=== PATIENT | male | born 1950 | race Caucasian/White ===

== ENCOUNTER 2017-07-18 07:32 | Outpatient (CLI) | payer BC | END 2017-07-18 07:33 | disposition home or self-care (01) | LOC: BICRAD 07:32 | PROVIDERS: ATTEND Family Medicine | DX: M25.512 Pain in left shoulder (principal); M19.012 Primary osteoarthritis, left shoulder ==

== ENCOUNTER 2017-11-19 19:43 | Emergency (ER) | payer BC ==
[2017-11-19 20:25] LABS: #Basophils 0.1 thou/uL (0.0-0.2); #Eosinphils 0.2 thou/uL (0.0-0.7); #Lymphocytes 1.6 thou/uL (1.20-3.40); #Monocytes 0.7 thou/uL (0.11-0.59); #Neutrophils 5.4 thou/uL (1.40-6.50); %Basophils 1.4 % (0.0-1.0); %Eosinophils 3.1 % (0.0-10.0); %Lymphocytes 20.2 % (21.0-51.0); %Monocytes 8.3 % (0.0-10.0); %Neutrophils 67.1 % (42.0-75.0); Hemoglobin 15.5 g/dL (14.0-18.0); Mean Corpuscular HGB CONC 34.4 g/dL (32.0-36.0); Mean Corpuscular Hemoglobin 29.6 pg (27.0-31.0); Mean Corpuscular Volume 85.9 fL (78.0-98.0); Platelet Count 252 thou/uL (130-400); RBC Distribution Width 11.9 % (11.5-14.5); Red Blood Cell (RBC) Count 5.25 mill/uL (4.70-6.10)
[2017-11-19 20:46] LABS: ALT (SGPT) 22 U/L (8-55); AST (SGOT) 18 U/L (5-34); Albumin 4.5 g/dL (3.4-4.8); Alkaline Phosphatase 66 U/L (40-150); Anion Gap 16 mmol/L (10-20); BUN (Urea Nitrogen) 26 mg/dL (8.4-25.7); Bilirubin, Total 0.8 mg/dL (0.2-1.2); CK (CPK) 194 U/L (30-200); Calc. Creatinine Clearance 0 mL/min (70-130); Calcium 9.7 mg/dL (7.8-10.44); Carbon Dioxide 21 mmol/L (23-31); Chloride 110 mmol/L (98-107); Estimated GFR-MDRD 47; Globulin 2.8 g/dL (2.4-3.5); Glucose 100 mg/dL (80-115); Potassium 3.8 mmol/L (3.5-5.1); Protein, Total 7.3 g/dL (5.8-8.1); Sodium 143 mmol/L (136-145)
[2017-11-19 20:50] LABS: CKMB 2.3 ng/mL (0-6.6); Troponin I Less than 0.010 ng/mL (< 0.028)
--- NOTE | 2017-11-19 20:55 | RAD ---
PORTABLE CHEST: History: Chest pain. FINDINGS: Heart size and mediastinum are within normal limits. The lungs are clear of infiltrates. No significa nt bony findings. IMPRESSION: No active intrathoracic disease. POS: [facility]
== END 2017-11-19 22:00 | disposition home or self-care (01) ==
LOC: ERS 19:43
DX: R00.2 Palpitations (principal)
CPT/HCPCS: 36415; 71045; 80053; 82550; 82553; 83880; 84484; 85025; 93005

== ENCOUNTER 2017-12-25 09:26 | Observation (INO) | payer BC ==
[2017-12-25 10:11] LABS: #Basophils 0.1 thou/uL (0.0-0.2); #Eosinphils 0.1 thou/uL (0.0-0.7); #Lymphocytes 0.9 thou/uL (1.20-3.40); #Monocytes 0.4 thou/uL (0.11-0.59); #Neutrophils 2.7 thou/uL (1.40-6.50); %Basophils 1.4 % (0.0-1.0); %Eosinophils 3.3 % (0.0-10.0); %Lymphocytes 21.6 % (21.0-51.0); %Neutrophils 64.6 % (42.0-75.0); Hemoglobin 14.2 g/dL (14.0-18.0); Mean Corpuscular HGB CONC 33.7 g/dL (32.0-36.0); Mean Corpuscular Hemoglobin 29.1 pg (27.0-31.0); Mean Corpuscular Volume 86.3 fL (78.0-98.0); Platelet Count 184 thou/uL (130-400); RBC Distribution Width 11.8 % (11.5-14.5); Red Blood Cell (RBC) Count 4.88 mill/uL (4.70-6.10); White Blood Cell (WBC) Count 4.1 thou/uL (4.8-10.8)
[2017-12-25 10:19] LABS: INR-International Normal Ratio 1.1; PTT 28.2 SEC (22.9-36.1); Prothrombin Time 13.8 SEC (12.0-14.7)
[2017-12-25 10:35] LABS: Anion Gap 11 mmol/L (10-20); BUN (Urea Nitrogen) 17 mg/dL (8.4-25.7); Calc. Creatinine Clearance 73 mL/min (70-130); Calcium 8.9 mg/dL (7.8-10.44); Carbon Dioxide 26 mmol/L (23-31); Chloride 108 mmol/L (98-107); Estimated GFR-MDRD 61; Glucose 98 mg/dL (80-115); Potassium 3.9 mmol/L (3.5-5.1); Sodium 141 mmol/L (136-145)
[2017-12-25] MEDS ORDERED: Lidocaine 1% (PF) 30 ML VIAL ONE (13:13)
[2017-12-25] MEDS ORDERED: Isoproterenol 0.2 MG/1 ML AMP ONE ×2 (13:14→14:44)
[2017-12-25] MEDS ORDERED: DOPamine 400 MG/D5W 250 ML 0 ML ONE (13:14)
[2017-12-25] MEDS ORDERED: Heparin 10,000 UNITS/1 ML VIAL ONE (14:12)
[2017-12-25] MEDS ORDERED: Propofol 500 MG/50 ML VIAL ONE (14:17)
[2017-12-25] MEDS ORDERED: Fentanyl 100 MCG/2 ML VIAL ONE (14:20)
[2017-12-25] MEDS ORDERED: Midazolam HCl 2 mg/2 ml Vial ONE (14:20)
[2017-12-25] MEDS ORDERED: PHENYLEPHRINE-NS 100 MCG/ML 10 ML SYRINGE ONE (14:57)
[2017-12-25] MEDS ORDERED: PROPOFOL 200 MG/20 ML VIAL ONE (14:57)
[2017-12-25] MEDS ORDERED: ePHEDrine/0.9% NaCl/PF SYRINGE 50 mg/10 ml ONE (14:57)
[2017-12-25] MEDS ORDERED: Zolpidem Tartrate 5 MG TAB PO PRN (18:10)
[2017-12-25] MEDS ORDERED: Acetaminophen/Codeine 30-300mg Tablet PO PRN ×2 (18:15)
[2017-12-25 18:36] VITALS: BMI 30.3
[2017-12-25] MEDS ORDERED: diphenhydrAMINE 25 MG CAP PO PRN (19:45)
[2017-12-25] MEDS ORDERED: Acetaminophen 500 MG TAB PO SCH (21:00)
[2017-12-26] MEDS ORDERED: Prevnar 13-Val Conj/PF 0.5 ML SYRINGE IM ONE (09:00)
[2017-12-26] MEDS ORDERED: Digoxin 0.125 MG TAB PO SCH (09:00)
[2017-12-26 11:47] VITALS: BP 140/77; TEMP 97.6
--- NOTE | 2017-12-26 12:49 | OP ---
DATE OF PROCEDURE: 12/25/2017 This is an electrophysiology study and radiofrequency ablation report. REFERRING PHYSICIAN: Humberto Bolden MD PRIMARY CARE PHYSICIAN: Joi Daugherty MD REASON FOR PROCEDURE: Mr. Barker is a 67-year-old man with prior history of palpitations, normal LVEF, and no ischemia on the stress test who had event monitor documented rapid 1:1 tachycardia ranging 180-230 beats per minute. Here for EPS and ablation procedure. DESCRIPTION OF PROCEDURE: The patient received deep sedation by Anesthesia specialist. After adequate level of sedation achieved, the left and right femoral venous area was prepped, draped, and anesthetized with subcutaneous lidocaine. The left femoral vein was accessed under ultrasound guidance, two 8- [place] short sheath was introduced. The right femoral vein was also accessed with ultrasound guidance and a single 8-[place] short sheath was introduced. Through the left side, a decapolar and octapolar catheter was advanced to the right ventricle, His bundle, right atrium, and CS positions. Pacing, mapping, and recording were performed in each location. The following findings were found. Baseline cycle length 1162 milliseconds, sinus rhythm, MD 164 milliseconds, QRS 71 milliseconds, QT 460 milliseconds, AH 86 milliseconds, HV 56 milliseconds. VA Wenckebach cycle length was 300 milliseconds and central concentric retrograde VA conduction was noted. The antegrade Wenckebach cycle length was 300 milliseconds. AV node ERP was measured to be at 600/220 milliseconds with dual AV alethea physiology was present. With overdrive atrial pacing transient RBBB pattern aberration was seen with normal HV. With burst atrial pacing, we were able to induce 1:1 narrow complex tachycardia with a cycle length of 375 milliseconds. VA timing on this was 200 milliseconds and central retrograde VA conduction was seen. Transiently Infrahisian block was also seen during tachycardia, resulting in 2:1 AV conduction, but it did not perturb the tachycardia, On isuprel though, we were able to induce faster tachycardia, which was a cycle length of 314 induced very rapid tachycardia at 250 milliseconds with VA timing of 90 milliseconds. Both tachycardia was assessed with ventricular overdrive pacing and promptly terminated with ventricular overdrive pacing. Re-synched R2 testing was also performed and there seems to have been no AA advancement with His refractory PVCs. Following that, a standard 4-mm ablation catheter was advanced to the right atrium. 3D map of the right atrium was performed and during tachycardia, mapping of retrograde AV was performed which seems to have lead the earliest atrial activation to the CS os/slow pathway area. Following that, slow pathway modification was performed with a total of 5 ablations at a total time of 3 minutes 11 seconds at 40 kilgore 60-degree settings. Maximum temperature was 56 degrees, average was 46 degrees. Following that burst atrial pacing, on and off isuprel was unable to re-induce a tachycardia. Extrastimuli testing did not demonstrate slow pathway and no echo beats were either seen. CONCLUSION: 1. 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 2. Dual AV alethea physiology at baseline. No evidence of accessory pathway. Rate related RBBB. 3. Slow pathway modification eliminating inducibility of both tachycardia on and off isuprel. 4. Otherwise, normal AV alethea and sinus alethea function. PLAN: 1. Routine postop care. [facility]
--- NOTE | 2017-12-26 13:52 | DIS ---
DATE OF ADMISSION: 12/25/2017 DATE OF DISCHARGE: 12/26/2017 REASON FOR 23-HOUR OBSERVATION: AVNRT, radiofrequency ablation. CONDITION AT DISCHARGE: Stable. DIAGNOSES: 1. Supraventricular tachycardia. 2. 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 PROCEDURES PERFORMED: Include an EP study, mapping and slow pathway modification for atypical and ty pical AV alethea reentrant tachycardia. HISTORY OF PRESENT ILLNESS: Mr. Barker is a 67-year-old gentleman with a history of palpitations, nor mal LVEF and no ischemia by prior stress test. He had an event monitor the documented a rapid 1:1 ta chycardia with ventricular rates in the 180-230 beat per minute range. He was admitted to [facility] for an elective outpatient EP study and ablation was performed on the . During his EP study he was successfully induced for atypical AVNRT as well as typical AVNRT. Dual AV alethea physiology was seen at baseline. There is no evidence of accessory pathway. Slow pathway modification was performe d eliminating inducibility of tachycardia on and off isuprel. Otherwise, normal AV alethea and sinus n odal function was demonstrated. There was also a right bundle aberration noted with burst atrial pac ing, which was transient. He has done well since his ablation. There has been no further tachycardi c episodes overnight. He is feeling well. He is tolerating p.o. intake. He is ambulating without d ifficulty around the [place]. His groin sites are stable without tenderness, bruising, hematoma or blee ding complications overnight. REVIEW OF SYSTEMS: Negative for heart racing, palpitation, chest pain or pressure, syncope, near syn cope, stroke or stroke-like symptoms or tenderness at groin site. OBJECTIVE: VITAL SIGNS: Temperature 97.6, pulse 60, blood pressure 115/65, oxygen 98% on room air, respirations are 20. GENERAL: This patient is alert, oriented, well groomed, well nourished. Speech is clear. Affect is appropriate. NEUROLOGIC: Nonfocal. LUNGS: Clear to auscultation bilaterally. HEART: Heart rate is regularly irregular without significant murmur, rub or gallop. Hepatojugular r eflex is negative. There is no jugular venous distention. EXTREMITIES: Warm and dry to touch without clubbing, cyanosis or edema. DISCHARGE MEDICATIONS: 1. Discontinue digoxin. 2. Metoprolol succinate taper at 12.5 mg daily x5 days, then every other day x3 days, then stop comp letely. Otherwise, resume home medications as previously taken. DISCHARGE INSTRUCTIONS: No lifting more than 15 pounds x1 week, no soaking baths x1 week. May resum e activity gradually and as tolerated after groin sites have healed in 7 days. We will follow up [facility] in [place] in 4-6 weeks, and contact us with any further questions or concerns post-ablation.
--- NOTE | 2017-12-31 21:10 | EKG ---
Test Reason : PREOP Blood Pressure : / mmHG Vent. Rate : 058 BPM Atrial Rate : 058 BPM P-R Int : 162 ms QRS Dur : 090 ms QT Int : 408 ms P-R-T Axes : 057 -46 057 degrees QTc Int : 400 ms Sinus bradycardia Left anterior fascicular block Abnormal ECG When compared with ECG of 19-NOV-2017 20:24, Nonspecific T wave abnormality now evident in Lateral leads Confirmed by ASHLEY SAAB (2) on 12/31/2017 9:09:50 PM Referred By: MARIELENA Confirmed By:ASHLEY SAAB
--- NOTE | 2017-12-31 21:41 | EKG ---
Test Reason : Blood Pressure : / mmHG Vent. Rate : 063 BPM Atrial Rate : 063 BPM P-R Int : 174 ms QRS Dur : 088 ms QT Int : 386 ms P-R-T Axes : 061 -41 040 degrees QTc Int : 395 ms Normal sinus rhythm Left axis deviation Abnormal ECG When compared with ECG of 25-DEC-2017 10:01, (Unconfirmed) No significant change was found Confirmed by ASHLEY SAAB (2) on 12/31/2017 9:41:04 PM Referred By: MARIELENA Confirmed By:ASHLEY SAAB
--- NOTE | 2017-12-31 21:47 | EKG ---
Test Reason : Blood Pressure : / mmHG Vent. Rate : 059 BPM Atrial Rate : 059 BPM P-R Int : 164 ms QRS Dur : 090 ms QT Int : 396 ms P-R-T Axes : 050 -36 060 degrees QTc Int : 392 ms Sinus bradycardia Left axis deviation Nonspecific T wave abnormality Abnormal ECG When compared with ECG of 25-DEC-2017 17:23, (Unconfirmed) Nonspecific T wave abnormality, worse in Lateral leads Confirmed by ASHLEY SAAB (2) on 12/31/2017 9:46:44 PM Referred By: MARIELENA Confirmed By:ASHLEY SAAB
== END 2017-12-26 13:39 | disposition home or self-care (01) ==
LOC: CCL 09:26 → 2SW 18:05
PROVIDERS: ADMIT Internal Medicine Cardiovascular Disease; ATTEND Internal Medicine Cardiovascular Disease
PROC: 4A023FZ Measurement of Cardiac Rhythm, Percutaneous Approach (ICD-10-PCS; principal; 2017-12-26)
PROC: 4A0234Z Measurement of Cardiac Electrical Activity, Percutaneous Approach (ICD-10-PCS; 2017-12-26)
PROC: 02583ZZ Destruction of Conduction Mechanism, Percutaneous Approach (ICD-10-PCS; 2017-12-26)
PROC: 02K83ZZ Map Conduction Mechanism, Percutaneous Approach (ICD-10-PCS; 2017-12-26)
DX: I47.1 Supraventricular tachycardia (principal); M10.9 Gout, unspecified; G43.909 Migraine, unspecified, not intractable, without status migrainosus; G25.0 Essential tremor; E78.5 Hyperlipidemia, unspecified; E66.9 Obesity, unspecified; Z68.30 Body mass index [BMI] 30.0-30.9, adult; Z79.899 Other long term (current) drug therapy
CPT/HCPCS: 36415; 76942; 80048; 85025; 85610; 85730; 90471; 90670; 93005; 93010; 93613; 93620; 93623; 93653; C1730; C1769; G0009; G0378; J1265; J1644; J2001; J2250; J2704; J3010

== ENCOUNTER 2020-04-10 09:37 | Outpatient (CLI) | payer MEDICARE | END 2020-04-10 09:38 | disposition home or self-care (01) | LOC: BICRAD 09:37 | PROVIDERS: ATTEND Family Medicine | DX: M54.6 Pain in thoracic spine (principal); M47.814 Spondylosis without myelopathy or radiculopathy, thoracic region | CPT/HCPCS: 72072 ==

== ENCOUNTER 2021-06-29 09:31 | Outpatient (CLI) | payer MEDICARE ==
[2021-06-29 10:27] LABS: Hemoglobin 14.2 g/dL (13.5-17.5); Mean Corpuscular HGB CONC 34.5 g/dL (32.0-36.0); Mean Corpuscular Hemoglobin 29.3 pg (27.0-33.0); Mean Corpuscular Volume 84.9 fl (81.2-95.1); Mean Platelet Volume 10.5 fl (7.4-10.4); Platelet Count 199 10x3/uL (150-450); RBC Distribution Width 13.2 % (11.5-14.5); Red Blood Cell (RBC) Count 4.85 10x6/uL (4.32-5.72)
[2021-06-29 10:36] LABS: Bilirubin Neg (Negative); Blood, Urine Negative (Negative); Clarity Clear (Clear); Glucose, Urine (Dipstick) Normal (Negative); Ketone, Urine Negative (Negative); Leukocyte Negative (Negative); Nitrite Negative (Negative); Protein, Urine (Dipstick) Negative (Neg-Trace); Specific Gravity, Urine 1.015 (1.002-1.036); Urobilinogen Normal mg/dL (Less than 2)
[2021-06-29 10:52] LABS: PTT 25.5 sec (22.0-33.0); Prothrombin Time 10.9 sec (9.5-12.1)
[2021-06-29 10:58] LABS: Anion Gap 13 mmol/L (10-20); BUN (Urea Nitrogen) 19 mg/dL (8.4-25.7); Calc. Creatinine Clearance 0 mL/min (70-130); Calcium 9.2 mg/dL (7.8-10.44); Carbon Dioxide 27 mmol/L (23-31); Chloride 110 mmol/L (98-107); Glucose 108 mg/dL (80-115); Potassium 4.1 mmol/L (3.5-5.1); Sodium 146 mmol/L (136-145)
[2021-06-29 11:16] LABS: Bacteria/HPF None Seen HPF (None Seen); RBC/HPF 0-3 HPF (0-3); Squamous Epithelial None Seen HPF (0-3); WBC/HPF 0-3 HPF (0-3)
[2021-06-29 16:46] LABS: SARS-CoV-2 PCR by NAA Not Detected (NotDetected)
== END 2021-06-29 09:32 | disposition home or self-care (01) ==
LOC: LABBT 09:31
PROVIDERS: ATTEND Urology
DX: Z01.818 Encounter for other preprocedural examination (principal); N18.31 Chronic kidney disease, stage 3a; N40.1 Benign prostatic hyperplasia with lower urinary tract symptoms; N42.32 Atypical small acinar proliferation of prostate; R35.1 Nocturia; N52.8 Other male erectile dysfunction; Z20.822 Contact with and (suspected) exposure to COVID-19
CPT/HCPCS: 80048; 81001; 85027; 85610; 85730; 87086; 93005; U0003; U0005; 93010

== ENCOUNTER 2021-07-02 05:43 | Day surgery (SDC) | payer MEDICARE ==
[2021-06-30 14:40] VITALS: BMI 31.1
[2021-07-02] MEDS ORDERED: Levofloxacin 500 mg/D5W 100 ml Premix Bag ONE (08:45)
[2021-07-02] MEDS ORDERED: PROPOFOL 200 MG/20 ML VIAL ONE (08:54)
[2021-07-02] MEDS ORDERED: B & O ONE (08:59)
== END 2021-07-02 12:37 | disposition home or self-care (01) ==
LOC: SDC 05:43
PROVIDERS: ATTEND Urology
PROC: 0T7D8DZ Dilation of Urethra with Intraluminal Device, Via Natural or Artificial Opening Endoscopic (ICD-10-PCS; principal; 2021-07-02)
DX: N40.1 Benign prostatic hyperplasia with lower urinary tract symptoms (principal); N18.9 Chronic kidney disease, unspecified; I47.1 Supraventricular tachycardia; K21.9 Gastro-esophageal reflux disease without esophagitis
CPT/HCPCS: C9740; L8699; J1956

== ENCOUNTER 2022-12-27 09:41 | Outpatient (CLI) | payer OTHER | END 2022-12-27 09:42 | disposition home or self-care (01) | LOC: ULT 09:41 | PROVIDERS: ATTEND Family Medicine | DX: N17.9 Acute kidney failure, unspecified (principal) | CPT/HCPCS: 76770 ==

== ENCOUNTER 2023-02-24 08:54 | Outpatient (CLI) | payer OTHER | END 2023-02-24 08:55 | disposition home or self-care (01) | LOC: BICMRI 08:54 | PROVIDERS: ATTEND Nurse Practitioner Family | DX: S86.012A Strain of left Achilles tendon, initial encounter (principal); M79.672 Pain in left foot; M67.874 Other specified disorders of tendon, left ankle and foot ==

== ENCOUNTER 2023-12-18 11:02 | Outpatient (CLI) | payer OTHER ==
[2023-12-18 12:01] LABS: Bacteria/HPF None Seen HPF (None Seen); Bilirubin Negative (Negative); Blood, Urine Negative (Negative); Clarity Clear (Clear); Glucose, Urine (Dipstick) Normal (Negative); Ketone, Urine Negative (Negative); Leukocyte Negative Leu/uL (Negative); Nitrite Negative (Negative); Protein, Urine (Dipstick) Negative (Neg-Trace); RBC/HPF 0-3 HPF (0-3); Specific Gravity, Urine 1.009 (1.002-1.036); Squamous Epithelial None Seen HPF (0-3); Urobilinogen Normal mg/dL (Less than 2); WBC/HPF 0-3 HPF (0-3)
[2023-12-18 12:14] LABS: #Basophils 0.05 10x3/uL (0.0-0.2); %Basophils 0.8 % (0.0-1.0); %Eosinophils 2.3 % (0.0-10.0); %Neutrophils 68.7 % (42.0-75.0); Hematocrit 41.9 % (42.0-52.0); Hemoglobin 14.4 g/dL (14.0-18.0); Mean Corpuscular HGB CONC 34.4 g/dL (32.0-36.0); Mean Corpuscular Hemoglobin 29.2 pg (27.0-31.0); Mean Platelet Volume 10.5 fL (7.4-10.4); Platelet Count 198 10x3/uL (130-400); RBC Distribution Width 13.1 % (11.5-14.5); Red Blood Cell (RBC) Count 4.93 mill/uL (4.70-6.10)
[2023-12-18 12:27] LABS: Anion Gap 11 mmol/L (10-20); BUN (Urea Nitrogen) 16 mg/dL (8.4-25.7); Calc. Creatinine Clearance 0 mL/min (70-130); Calcium 9.1 mg/dL (7.8-10.44); Carbon Dioxide 26 mmol/L (23-31); Chloride 108 mmol/L (98-107); Estimated GFR 65; Glucose 92 mg/dL (83-110); Potassium 3.5 mmol/L (3.5-5.1); Sodium 141 mmol/L (136-145)
[2023-12-18 12:51] LABS: Prothrombin Time 13.5 sec (12.0-14.7)
[2023-12-18 12:52] LABS: PTT 29.7 sec (22.9-36.1)
== END 2023-12-18 11:03 | disposition home or self-care (01) ==
LOC: LABBT 11:02
PROVIDERS: ATTEND Urology
DX: Z01.812 Encounter for preprocedural laboratory examination (principal); N42.32 Atypical small acinar proliferation of prostate; N18.31 Chronic kidney disease, stage 3a; N40.1 Benign prostatic hyperplasia with lower urinary tract symptoms; R35.1 Nocturia; N52.8 Other male erectile dysfunction
CPT/HCPCS: 80048; 81001; 85025; 85610; 85730; 87086; 93005; 93010

== ENCOUNTER 2023-12-28 05:55 | Day surgery (SDC) | payer OTHER ==
[2023-12-18 11:16] VITALS: BMI 29.0
[2023-12-28] MEDS ORDERED: LevoFLOXacin D5W 500 mg (100 mL) BAG ONE (12:36)
[2023-12-28] MEDS ORDERED: Ondansetron PF 4 MG/2 ML Vial ONE (13:05)
[2023-12-28] MEDS ORDERED: Lidocaine 2% PF 5 ML VIAL ONE (13:05)
[2023-12-28] MEDS ORDERED: PROPOFOL 20 ML ONE (13:05)
[2023-12-28] MEDS ORDERED: Dexamethasone 4 mg/ml Vial ONE (13:05)
[2023-12-28] MEDS ORDERED: fentaNYL PF 100 MCG/2 ML SYRINGE ONE ×2 (13:05→14:40)
[2023-12-28] MEDS ORDERED: Rocuronium Bromide 10 MG/ML (10ML VIAL) ONE (13:05)
[2023-12-28] MEDS ORDERED: Midazolam HCl 2 mg/2 ml Vial ONE (13:05)
[2023-12-28] MEDS ORDERED: SUGAMMADEX SODIUM 200 MG/2 ML VIAL ONE ×2 (13:06→14:39)
[2023-12-28] MEDS ORDERED: Glycopyrrolate 0.2 MG/ML 5 ML SYRINGE ONE (14:00)
[2023-12-28] MEDS ORDERED: PHENYLEPHRINE-NS 100 MCG/ML 10 ML SYRINGE ONE (14:00)
[2023-12-28] MEDS ORDERED: Oxybutynin 5 MG TAB ONE (14:56)
[2023-12-28] MEDS ORDERED: Phenazopyridine HCl 100 MG TAB ONE (14:56)
== END 2023-12-28 18:55 | disposition home or self-care (01) ==
LOC: SDC 05:55
PROVIDERS: ATTEND Urology
PROC: 0V507ZZ Destruction of Prostate, Via Natural or Artificial Opening (ICD-10-PCS; principal; 2023-12-28)
DX: N40.1 Benign prostatic hyperplasia with lower urinary tract symptoms (principal); N42.32 Atypical small acinar proliferation of prostate; R35.1 Nocturia; N52.8 Other male erectile dysfunction; N18.31 Chronic kidney disease, stage 3a; G43.909 Migraine, unspecified, not intractable, without status migrainosus; K21.9 Gastro-esophageal reflux disease without esophagitis; M10.9 Gout, unspecified; Z79.899 Other long term (current) drug therapy
CPT/HCPCS: 52601; J1100; J1956; J2250; J2405; J2704; A4333